=== PATIENT | female | born 1975 | race Two or more races ===

== ENCOUNTER 2023-10-26 15:04 | Emergency (ER) | payer OTHER ==
[~2023-10-26] VITALS: Ht 165.1 cm; Wt 73.0 kg
[2023-10-26 15:10] VITALS: TEMP 98
[2023-10-26] MEDS ORDERED: ACET-2247 PO (15:14)
[2023-10-26] MEDS: KETOROLAC TROMETHAMINE 30 MG/ML VIAL IVP ONE (16:37)
[2023-10-26] MEDS: SODIUM CHLORIDE 0.9% 1,000 ML IV ONE (16:37)
[2023-10-26] MEDS: ONDANSETRON HCL 4 MG/2 ML VIAL IVP ONE (16:38)
[2023-10-26 16:50] LABS: BASOPHILS % (AUTO) 0.9 % (0.0-2.0); HEMATOCRIT 34.6 % (36-46); HEMOGLOBIN 11.3 g/dL (12.0-16.0); LYMPHOCYTES # (AUTO) 1.6 K/uL (1.0-4.8); MEAN CORPUSCULAR HEMOGLOBIN 27.8 pg (26.0-34.0); MEAN CORPUSCULAR HGB CONC 32.5 G/dL (31.0-37.0); MEAN CORPUSCULAR VOLUME 86 fL (80-100); MONOCYTES # (AUTO) 0.4 K/uL (0.1-1.0); NEUTROPHILS # (AUTO) 6.1 K/uL (1.8-7.7); NEUTROPHILS % (AUTO) 73.1 % (40.0-70.0); PLATELET COUNT (AUTO) 478 K/uL (150-450); RED BLOOD CELL COUNT(AUTO) 4.05 MIL/uL (4.00-5.20); RED CELL DISTRIBUTION WIDTH 13.2 % (11.5-14.5); WHITE BLOOD COUNT (AUTO) 8.3 K/uL (4.5-11.0)
[2023-10-26 17:01] LABS: ANION GAP 7 mmol/L (8-16); CALCIUM, TOTAL 9.7 mg/dL (8.8-10.5); CARBON DIOXIDE 30 mmol/L (22-29); CHLORIDE 102 mmol/L (98-107); CREATININE 0.62 mg/dL (0.60-1.30); GLOMERULAR FILTR. RATE CALC > 60 mL/min (>60); GLUCOSE,RANDOM 102 mg/dL (70-110); POTASSIUM 3.6 mmol/L (3.5-5.1); SODIUM SERUM 139 mmol/L (136-145); UREA NITROGEN, BLOOD 11 mg/dL (7-18)
[2023-10-26 17:07] LABS: ALANINE AMINOTRANSFERASE 23 U/L (12-78); ALBUMIN 3.5 g/dL (3.4-5.0); ALKALINE PHOSPHATASE 96 U/L (46-116); ASPARTATE AMINOTRANSFERASE 11 U/L (15-37); BILIRUBIN,TOTAL 0.2 mg/dL (0.1-1.0); LIPASE 30 U/L (16-77); TOTAL PROTEIN, SERUM 7.8 g/dL (6.4-8.2)
[2023-10-26] MEDS ORDERED: IOHEXOL 350 MG/ML 100 ML VIAL ONE (17:20)
[2023-10-26] MEDS ORDERED: SODIUM CHLORIDE 0.9% 100 ML ONE (17:20)
[2023-10-26] MEDS: PIPERACILLIN/TAZO 3.375 GM/D5W 50 ML IV ONE (20:28)
[2023-10-26] MEDS: VANCOMYCIN HCL 1.25 GM in DEXTROSE 5%-WATER 250 ML IV ONE (20:29)
[2023-10-26 21:27] LABS: COVID AG,FIA SOURCE NASAL SWAB
[2023-10-26 21:28] VITALS: BP 151/85; PULSE 68; RESP 16
[2023-10-26 22:39] LABS: SARS-COV2 (COVID) ANTIGEN,FIA Negative (Negative)
== END 2023-10-26 22:00 | disposition home or self-care (01) ==
LOC: EMS 15:06
DX: G89.18 Other acute postprocedural pain (principal); R10.30 Lower abdominal pain, unspecified; Z98.890 Other specified postprocedural states; Z20.822 Contact with and (suspected) exposure to COVID-19
CPT/HCPCS: 99285; 74177; 96365; 96375; 96361; 87426; 80053; 82962; 83690; 84703; 85025; 36415; 96368; J1885; J2405; J2543; J3370; Q9967; J7060; J7030; J7050